=== PATIENT | female | born 1955 | race Caucasian/White ===

== ENCOUNTER → 2020-07-06 | Outpatient (CLI) | payer OTHER ==
[~2020-07-06] MED LIST: ACYC400 PO; ASPI81EC PO; BUPR150T2; CELE100; Dyazide 37.5-21 EACH; FAMO20; HYDACE5 PO; IBUP800 PO; MELO7.5 PO; Norco 10-325 T1 EACH PO; OXYACE5T PO; PRED10 PO; RXTRAM50 PO; TRAM50 PO; TRIHYD253B PO; VERA120 PO
[2020-07-08 15:10] LABS: HPV 16 Negative (Negative); HPV 18 Negative (Negative); HPV OTHER HR TYPES Negative (Negative)
== END | disposition home or self-care (01) ==
LOC: LAB 08:40 → LAB SHORT 08:40
PROVIDERS: Internal Medicine
DX: Z12.4 Encounter for screening for malignant neoplasm of cervix (principal)
CPT/HCPCS: 87624; G0145

== ENCOUNTER → 2022-03-02 | Outpatient (CLI) | payer OTHER | END | disposition home or self-care (01) | LOC: LAB 16:58 → LAB SHORT 16:58 | DX: R10.32 Left lower quadrant pain (principal); R10.31 Right lower quadrant pain | CPT/HCPCS: 87338 ==

== ENCOUNTER → 2022-11-23 | Outpatient (CLI) | payer OTHER | END | disposition home or self-care (01) | LOC: LAB SHORT 12:38 → LAB 12:38 | DX: D48.5 Neoplasm of uncertain behavior of skin (principal) | CPT/HCPCS: 88305 ==